=== PATIENT | male | born 1965 | race Caucasian/White ===

== ENCOUNTER → 2018-01-20 | Day surgery (SDC) | payer OTHER ==
[~2018-01-20] MED LIST: Betamethasone Acetate/Betamethasone Sod Phosphate 30 MG/5 ML MDV ONE; Iopamidol 408 MG/ML 50 ML SDV ONE; Lidocaine 1% 0 ML ONE; Lidocaine 2% 5 ML SDV ONE; Ropivacaine 0.5% 5 MG/ML 30 ML SDV ONE
--- NOTE | 2018-01-21 14:08 | OR ---
SURGEON: Merle Waddell D.O. DATE OF PROCEDURE: 01/20/2018 OR STAFF PRESENT: 1. Rebekah Pack RN. 2. Micky Mccracken RN. 3. RT Stella. WOUND CLASS: I. PREOPERATIVE DIAGNOSES: 1. Lumbar degenerative disk disease.(L4-5,L5-S1) 2. Lumbar spondylosis. 3. Chronic low back pain. POSTOPERATIVE DIAGNOSES: 1. Lumbar degenerative disk disease. 2. Lumbar spondylosis. 3. Chronic low back pain. PROCEDURES PERFORMED: Lumbar epidural steroid injection, interlaminar at L4-5; fluoroscopic guidance for needle placement local with oral valium for sedation. PREOPERATIVE PAIN: 6/10. POSTOPERATIVE PAIN: /10. FOLLOWUP: In the pain clinic in 3 weeks. SCREENING QUESTIONS: The patient answered "no" to all of the following questions: 1. Are you allergic to latex? 2. Do you have a bleeding disorder? 3. Do you have any current local or systemic infections? 4. Are you taking any anti-inflammatories or blood thinners? 5. Do you have any joint replacements, heart valve replacements, or a pacemaker? DESCRIPTION OF PROCEDURE: The patient had the procedure thoroughly explained including all possible risks, benefits and alternatives. Consent was signed in my clinic indicating understanding and willingness to proceed. The patient presented to [facility] and was escorted to the dressing room to disrobe and change into a hospital gown. Preoperative vital signs were taken and stable. The patient reported that Valium was taken prior to the procedure. The patient was brought back to the procedure room and placed in the prone position on the procedure room table. A pillow was placed under the hips in order to flatten the lumbar lordosis. The back was prepped with ChloraPrep and sterilely draped. All personnel in the operating room were dressed in appropriate attire including surgical scrubs, head and shoe covers. This was to ensure sterility while in the treatment room. During the time fluoroscopy was in use, all personnel in the operating room wore lead lozano with thyroid collars. Sterile technique was used throughout the procedure. The patient was awake and conversant throughout the procedure. There was no evidence of infection at the site of needle insertion. Skeletal landmarks were identified under fluoroscopy for the L4-5 epidural. Skin was anesthetized with 2% lidocaine with a sterile 27-gauge 1.5 inch needle. Then a 20-gauge Tuohy epidural needle was placed in the epidural space with loss of resistance technique under fluoroscopic guidance. No heme, cerebrospinal fluid, or paresthesias were noted. Isovue-200 contrast dye was injected in 0.2 cubic centimeter increments and seen to outline the epidural space in both AP and lateral views. There was no intravascular flow pattern observed under live fluoroscopy. Then 12 milligrams of Celestone and local was slowly injected after negative aspiration. The patient tolerated the procedure well. Vital signs were stable during and after the procedure. The staff escorted the patient to the recovery area and the patient was released in stable condition after a brief stay in the recovery room monitored by the nurse. The patient was given both oral and written discharge and follow up instructions with recommendation to follow up given for 2-3 weeks. The patient voiced understanding including understanding of those signs and symptoms that would require emergency care. The patient knows how to contact the office if there are any additional problems or questions in the meantime. SHAHZAD / JEFFREY /[id number] MTDSandie
== END ==
LOC: MW.SDS 11:42
PROVIDERS: ATTEND Anesthesiology
DX: G89.29 Other chronic pain (principal); M54.5 Low back pain; M47.26 Other spondylosis with radiculopathy, lumbar region; M46.96 Unspecified inflammatory spondylopathy, lumbar region; M51.36 Other intervertebral disc degeneration, lumbar region; M17.0 Bilateral primary osteoarthritis of knee; M99.83 Other biomechanical lesions of lumbar region; E78.00 Pure hypercholesterolemia, unspecified; Z88.8 Allergy status to other drugs, medicaments and biological substances; Z88.5 Allergy status to narcotic agent; M79.1 Myalgia
CPT/HCPCS: 62323; J0702; J2795; Q9966

== ENCOUNTER 2018-07-13 08:08 | Day surgery (SDC) | payer OTHER ==
[~2018-07-13 08:08] MED LIST changes: +Acetaminophen/oxyCODONE 325-10 MG Tab PO PRN; -Betamethasone Acetate/Betamethasone Sod Phosphate 30 MG/5 ML MDV ONE; +Bupivacaine 0.5% 30 ML SDV ONE; -Iopamidol 408 MG/ML 50 ML SDV ONE; +Ketorolac 10 MG Tab PO PRN; +Lactated Ringers 1,000 ML IV SCH; -Lidocaine 1% 0 ML ONE; +Lidocaine 1% 50 ML MDV ONE; -Lidocaine 2% 5 ML SDV ONE; +Midazolam 1 MG/ML 2 ML SDV ONE; -Ropivacaine 0.5% 5 MG/ML 30 ML SDV ONE; +ceFAZolin 1 GM in Premix Bag 1 BAG IV SCH; +fentaNYL 100 MCG/2 ML SDV ONE
--- NOTE | 2018-07-13 08:58 | PCM.PREANE ---
Preanesthetic Assessment - Anesthesia/Transfusion/Family Hx Anesthesia History: Prior Anesthesia Without Reaction Family History of Anesthesia Reaction: No Transfusion History: No Prior Transfusion(s) Intubation History: Unknown - Review of Systems General: No Symptoms Pulmonary: No Symptoms Cardiovascular: No Symptoms Gastrointestinal: No Symptoms Neurological: No Symptoms Other: Reports: None - Physical Assessment NPO Status Date: 07/12/18 NPO Status Time: 19:00 O2 Sat by Pulse Oximetry: 97 Respiratory Rate: 20 Vital Signs: Last Vital Signs Temp 36.2 C 07/13/18 08:25 Pulse 90 07/13/18 08:25 Resp 20 07/13/18 08:25 BP 119/73 07/13/18 08:25 Pulse Ox 97 07/13/18 08:25 Height: 1.73 m Weight: 76.657 kg ASA Class: 2 Mental Status: Alert & Oriented x3 Airway Class: Mallampati = 2 Dentition: Reports: Normal Dentition Thyro-Mental Finger Breadths: 3 Mouth Opening Finger Breadths: 2 ROM/Head Extension: Limited/Partial Lungs: Clear to Auscultation, Normal Respiratory Effort Cardiovascular: Regular Rate, Regular Rhythm - Allergies Allergies/Adverse Reactions: Allergies Allergy/AdvReac Type Severity Reaction Status Date / Time atorvastatin Allergy Muscle Verified 07/07/18 12:22 Aches hydrocodone Allergy Nausea and Verified 07/07/18 12:22 Vomiting - Blood Blood Available: No - Anesthesia Plan Pre-Op Medication Ordered: None - Acknowledgements Anesthesia Type Planned: General Anesthesia, Regional Block (interscalene brachial plexus block for postoparetive pain control) PreAnesthesia Questionnaire HEENT History: Reports: Other (See Below) Other HEENT History: wears glasses, has upper front permanent bridge Cardiovascular History: Reports: High Cholesterol Gastrointestinal History: Reports: None Musculoskeletal History: Reports: Back Pain, Chronic, Fracture, Osteoarthritis Other Musculoskeletal History: hx of fx right ankle, chronic pain sydrome, h/o chronic use of opioids Neurological History: Reports: Other (See Below) Other Neuro History: hx of motion sickness on a boat - Past Surgical History Head Surgeries/Procedures: Reports: None GI Surgical History: Reports: Hernia, Inguinal Neurological Surgical History: Reports: C-Spine, Spinal Fusion Other Neurological Surgeries/Procedures: has bulging discs at L4-5-6, hx of fusion C4-5-6 Musculoskeletal Surgical History: Reports: Arthroscopic Knee, Hip Replacement, Knee Replacement, Shoulder Surgery Other Musculoskeletal Surgeries/Procedures:: bilateral MIGUEL, left TKA, hx of 8 knee arthroscopies including 3 ACL repairs, hx of left shoulder reconstruction - SUBSTANCE USE Smoking Status *Q: Never Smoker Recreational Drug Use History: No - HOME MEDS Home Medications: Home Meds Diclofenac Sodium [Voltaren 1% Gel] 4 gm TOP QID PRN 07/07/18 [History] Gebauers [place] And Stretch 1 spray TOP TID PRN 07/07/18 [History] oxyCODONE HCl/Acetaminophen [Endocet 7.5-325 mg Tablet] 1 tab PO Q6H PRN [History] - CURRENT (IN HOUSE) MEDS Current Meds: Current Medications Cefazolin Sodium/Dextrose 1 gm (/ Premix) 50 mls @ 100 mls/hr IV ONCALL [facility] Lactated Ringer's (Ringers, Lactated) 1,000 mls @ 100 mls/hr IV ASDIRECTED [facility] Last Admin: 07/13/18 08:30 Dose: 100 mls/hr Ketorolac Tromethamine (Toradol) 10 mg PO Q6H PRN PRN Reason: Pain Stop: 07/18/18 08:01 Oxycodone/Acetaminophen (Percocet 325-10 Mg) 1 - 2 tab PO Q4H PRN PRN Reason: Pain Discontinued Medications Bupivacaine HCl (Marcaine 0.5%) Confirm Administered Dose 30 ml .ROUTE .STK-MED ONE Stop: 07/13/18 07:33 Fentanyl (Sublimaze) Confirm Administered Dose 100 mcg .ROUTE .STK-MED ONE Stop: 07/13/18 07:47 Lidocaine HCl (Xylocaine 1%) Confirm Administered Dose 50 ml .ROUTE .STK-MED ONE Stop: 07/13/18 07:33 Midazolam HCl (Versed 1 Mg/Ml) Confirm Administered Dose 4 mg .ROUTE .STK-MED ONE Stop: 07/13/18 07:47
[2018-07-13] MEDS ORDERED: Lidocaine 2% 5 ML SDV ONE (09:15)
[2018-07-13] MEDS ORDERED: Propofol 200 MG/20 ML SDV ONE (10:11)
[2018-07-13] MEDS ORDERED: Midazolam 1 MG/ML 2 ML SDV ONE (10:11)
[2018-07-13] MEDS ORDERED: fentaNYL 250 MCG/5 ML SDV ONE (10:12)
--- NOTE | 2018-07-13 10:16 | PCM.SN ---
- Free Text/Narrative Note: Anesthesia Note: Right Interscalene Block performed [id number] for postop pain control. Pt consents to procedure after risks/benefits discussed. Pt has had one in the past and states it worked great. EKG, Sat monitor, and 2L of O2 applied per NC. 2mg Versed and 50mcg Fentanyl IV given for sedation. R shoulder marked per Dr. Goodman and timeout performed with Dr. Wilson. Site identified and prepped with chlorhexidine prep. Skin wheal with 0.5 mL of 2% lido. Pt positioned sitting with HOB at 25 degrees. 24 Ga Stimuplex needle initially obtains full R arm and shoulder twitch at 1.0 mA and able to refine down to 0.45 mA. Negative aspiration and injection of a total of 30mL 0.5% Bupivicaine, 10mL 2% Lidocaine , and 4mg Decadron with negative aspiration every 5mL. Pt tolerates well and VSS. Pt states some parasthesia immediately after finishing and by 25 min after can no longer move arm. Pt resting comfortably and happy with results.
[2018-07-13] MEDS ORDERED: Rocuronium 10 MG/ML 10 ML Syringe ONE (10:17)
[2018-07-13] MEDS ORDERED: Promethazine 25 MG/ML SDV IM ONE (11:41)
[2018-07-13] MEDS ORDERED: fentaNYL 100 MCG/2 ML SDV IVPUSH PRN (11:41)
[2018-07-13] MEDS ORDERED: Glycopyrrolate 0.2 MG/ML SDV ONE (11:54)
--- NOTE | 2018-07-13 13:10 | PCM.OPNOTE ---
- General Post-Op/Procedure Note Date of Surgery/Procedure: 07/13/18 Operative Procedure(s): R shoulder scope with SAD, extensive debridement, and RTCR Post-Op Diagnosis: R shoulder. 1. impingement. 2. deg ant/post labral tear. 3. biceps tendonopathy. 4. RTC tear Anesthesia Technique: General ET Tube, Regional Block Primary Surgeon: Sandra Goodman Rock Mason Apprentice: Evelia Paredes EBL in mLs: 10 Condition: Good Free Text/Narrative:: # [id number]
--- NOTE | 2018-07-13 13:52 | PCM.POSTAN ---
POST ANESTHESIA ASSESSMENT - MENTAL STATUS Mental Status: Alert, Oriented - RESPIRATORY Respiratory Status: Respiratory Rate WNL, Airway Patent, O2 Saturation Stable - CARDIOVASCULAR CV Status: Pulse Rate WNL, Blood Pressure Stable - GASTROINTESTINAL GI Status: No Symptoms - PAIN Pain Score: 0 - POST OP HYDRATION Hydration Status: Hypovolemic - OBSERVATIONS Free Text/Narrative:: no anesthesia problems
--- NOTE | 2018-07-13 14:28 | OR ---
SURGEON: Sandra Goodman MD DATE OF PROCEDURE: 07/13/2018 PREOPERATIVE DIAGNOSES: 1. Right shoulder impingement syndrome. 2. Right shoulder rotator cuff tear. POSTOPERATIVE DIAGNOSES: 1. Right shoulder impingement syndrome. 2. Right shoulder degenerative anterior and posterior labral tear. 3. Right shoulder biceps tendinopathy. 4. Right shoulder rotator cuff tear. PROCEDURES: Right shoulder arthroscopy with: 1. Subacromial decompression with release of coracoacromial ligament and acromioplasty. 2. Extensive debridement including debridement of degenerative anterior and posterior labral tear and biceps tenotomy. 3. Arthroscopic rotator cuff repair. 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 ESTIMATED BLOOD LOSS: 10 mL. TOURNIQUET TIME: 0 minutes. COMPLICATIONS: None. DVT PROPHYLAXIS: PAS boots to bilateral lower extremities. IMPLANTS USED: Biomet 2.9 mm JuggerKnot anchor x2 and Winkapp Quattro Link anchor. BRIEF HISTORY: Salvador is a 53-year-old male who has had complaint of progressive right shoulder pain. An MRI did show a small tear of the supraspinatus. Due to his lack of response to conservative treatment, I did recommend surgical intervention. Risks and goals of the procedure were discussed with the patient and were documented preoperatively. He agreed to proceed. DESCRIPTION OF PROCEDURE: The patient was properly identified and brought to the operating room. He was transferred from the OR cart and placed on the operating table in supine position. General anesthesia was administered. An interscalene block had been administered preoperatively. After adequate anesthesia was obtained, the patient was placed into a beach-chair position. Care was taken to pad all bony prominences. His head was secured. The right upper extremity was then prepped in standard fashion using ChloraPrep solution. It was then sterilely draped. A time-out was performed to ensure correct site and procedure. Preoperative antibiotics were given. The surgical site had been marked preoperatively. A marking pen was used to identify bony landmarks. Approximately 30 mL of normal saline was introduced into the glenohumeral joint. A posterior portal arthrotomy was established. Blunt trocar and cannula were introduced into the glenohumeral joint. Camera, inflow, and outflow were assembled. He had mild synovitis within the rotator interval. An anterior portal was established. The supraspinatus was probed. He had some minor degenerative fraying along the superior border; however, its attachment was intact, no loose bodies were noted within the subscapular recess. The anterior labrum was then inspected. He had extensive degenerative fraying of the anterior, superior, and posterior labrum. Using a combination of electrocautery and shaver, this was debrided back to a stable remnant. The biceps was then inspected. Its attachment to the superior labrum showed quite a bit of peel back. The biceps was pulled into the joint to examine the distal aspect of the biceps tendon. Extensive synovitis and minor longitudinal tearing were noted. I elected to proceed with biceps tenotomy. Using electrocautery, the biceps tendon was amputated from its attachment site to the superior glenoid. The biceps tendon retracted easily into the biceps tendon sheath. Its attachment site was smoothed. Electrocautery was then used to debride the remainder of the superior and posterior labrum. Joint surfaces were then inspected. 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 The humeral head showed some bumpiness to the articular surface. These areas were probed and were found to be stable. It may have been just softening consistent with grade 1 chondromalacia. I then entered the axillary pouch. No loose bodies were identified. The arm was then brought into an abducted and externally rotated position. The bare area was noted posteriorly. As I progressed forward, there was significant fraying along the anterior aspect of the supraspinatus. No full-thickness tear was appreciated; however, there was extensive fraying greater than 7 mm. The arm was then brought back into a neutral position. Instruments were removed from the glenohumeral joint. Blunt trocar and cannula were then introduced into the subacromial space. Camera, inflow, and outflow were assembled. He had extensive bursitis. Using a combination of electrocautery and the shaver, an extensive bursectomy was performed. This allowed for good visualization of the rotator cuff. The anterior aspect of the supraspinatus showed quite a bit of thinning consistent with intra-articular findings. Although, the tear was not completely full-thickness, the remaining attachment was quite thin and I elected to proceed with repair. The anterior portion of the supraspinatus was removed from its attachment to the footprint. The bone just lateral to the articular surface was then debrided of soft tissue. I then turned my attention to the acromion. This appeared to be downsloping and causing some impingement. The coracoacromial ligament was released anteriorly. I then performed an acromioplasty using a 5.0 mm eva. This provided good decompression of the subacromial space. I then used the eva to roughen the repair site. The bone just lateral to the articular margin at the site of the tear was debrided to a bleeding surface. I then made an additional portal to help with suture management and anchor placement. Passport cannulas were placed into two lateral portals. Two 2.9 mm JuggerKnot anchors were then placed into the subchondral bone, just lateral to the articular margin. The bone quality appeared good and no pullout was noted with tension on the anchor. A suture passer was then used to pass the sutures through the rotator cuff in an anterior to posterior fashion. The cuff tissue was quite robust. I then tied the sutures in a posterior to anterior manner. I felt that we would have better compression of the cuff if a lateral row was placed. I did use Quattro Link anchor to pass the limbs of the suture through. The Quattro Link anchor was then placed in a lateral row position, this was placed without difficulty. A probe was then used to examine the repair site. There appeared to be good compression of the cuff to the bony surface. No peel back was noted and the repair appeared to be nearly watertight. Suture ends were then trimmed. Instruments were then removed from the shoulder. The portal sites were closed with 3-0 nylon. Xeroform gauze was placed over the wound and a bulky dressing was applied. He was placed into a shoulder immobilizer. He was awakened from his anesthetic and transferred back to the operating room cart. He was brought to recovery room in stable condition. All needle and sponge counts were correct. WALKER / JEFFREY /[id number]
== END 2018-07-13 15:02 | disposition home or self-care (01) ==
LOC: MW.SDS 08:08
PROVIDERS: ATTEND Orthopaedic Surgery
DX: M75.101 Unspecified rotator cuff tear or rupture of right shoulder, not specified as traumatic (principal); M75.41 Impingement syndrome of right shoulder; M94.211 Chondromalacia, right shoulder; M65.811 Other synovitis and tenosynovitis, right shoulder; S43.401A Unspecified sprain of right shoulder joint, initial encounter; E78.00 Pure hypercholesterolemia, unspecified; M79.18 Myalgia, other site; Z88.8 Allergy status to other drugs, medicaments and biological substances; Z88.5 Allergy status to narcotic agent; X58.XXXA Exposure to other specified factors, initial encounter
CPT/HCPCS: 29823; 29826; 29827; 64415; C1713; J2001; J2250; J2704; J3010; J3490; J7120; 88304

== ENCOUNTER 2018-11-23 06:26 | Day surgery (SDC) | payer OTHER ==
[~2018-11-23 06:26] MED LIST changes: -Acetaminophen/oxyCODONE 325-10 MG Tab PO PRN; -Bupivacaine 0.5% 30 ML SDV ONE; -Ketorolac 10 MG Tab PO PRN; -Lidocaine 1% 50 ML MDV ONE; -Midazolam 1 MG/ML 2 ML SDV ONE; -ceFAZolin 1 GM in Premix Bag 1 BAG IV SCH; -fentaNYL 100 MCG/2 ML SDV ONE
[2018-11-23] MEDS ORDERED: Lidocaine 2% 5 ML SDV ONE (06:51)
[2018-11-23] MEDS ORDERED: Propofol 200 MG/20 ML SDV ONE ×2 (06:51)
[2018-11-23] MEDS ORDERED: Ketamine 500 mg/10 ML MDV ONE (06:59)
--- NOTE | 2018-11-23 07:20 | PCM.PREANE ---
Preanesthetic Assessment - Anesthesia/Transfusion/Family Hx Anesthesia History: Prior Anesthesia Without Reaction Family History of Anesthesia Reaction: No Transfusion History: No Prior Transfusion(s) Intubation History: Unknown - Review of Systems General: No Symptoms Pulmonary: No Symptoms Cardiovascular: No Symptoms Gastrointestinal: No Symptoms, Other (screening colonoscopy) Neurological: No Symptoms Other: Reports: None - Physical Assessment NPO Status Date: 11/22/18 NPO Status Time: 22:00 O2 Sat by Pulse Oximetry: 98 Respiratory Rate: 16 Vital Signs: Last Vital Signs Temp 36.0 C 11/23/18 06:45 Pulse 104 H 11/23/18 06:45 Resp 16 11/23/18 06:45 BP 119/82 11/23/18 06:45 Pulse Ox 98 11/23/18 06:45 Height: 5 ft 8 in Weight: 79.379 kg ASA Class: 2 Mental Status: Alert & Oriented x3 Airway Class: Mallampati = 2 Dentition: Reports: Normal Dentition Thyro-Mental Finger Breadths: 3 Mouth Opening Finger Breadths: 3 (narrow mouth) ROM/Head Extension: Full Lungs: Clear to Auscultation, Normal Respiratory Effort Cardiovascular: Regular Rate, Regular Rhythm - Allergies Allergies/Adverse Reactions: Allergies Allergy/AdvReac Type Severity Reaction Status Date / Time atorvastatin Allergy Muscle Verified 11/21/18 08:27 Aches hydrocodone Allergy Nausea and Verified 11/21/18 08:27 Vomiting - Blood Blood Available: No - Anesthesia Plan Pre-Op Medication Ordered: None - Acknowledgements Anesthesia Type Planned: MAC Pt an Appropriate Candidate for the Planned Anesthesia: Yes Alternatives and Risks of Anesthesia Discussed w Pt/Guardian: Yes Pt/Guardian Understands and Agrees with Anesthesia Plan: Yes PreAnesthesia Questionnaire HEENT History: Reports: Other (See Below) Other HEENT History: reading glasses, Cardiovascular History: Reports: High Cholesterol Respiratory History: Reports: None Gastrointestinal History: Reports: None Genitourinary History: Reports: BPH Musculoskeletal History: Reports: Back Pain, Chronic, Fracture, Neck Pain, Chronic, Osteoarthritis, Other (See Below) (chronic pain syndrome, myofascial pain syndrome, foster. knee and feet pain) Other Musculoskeletal History: DDD Neurological History: Reports: Other (See Below) Other Neuro History: cervico-occipital pain (tension headache), hx of motion sickness on a boat Psychiatric History: Reports: None Endocrine/Metabolic History: Reports: None Hematologic History: Reports: None Immunologic History: Reports: None Oncologic (Cancer) History: Reports: None Dermatologic History: Reports: None - Past Surgical History Head Surgeries/Procedures: Reports: None HEENT Surgical History: Reports: None Cardiovascular Surgical History: Reports: None Respiratory Surgical History: Reports: None GI Surgical History: Reports: Hernia, Inguinal Male Surgical History: Reports: None Endocrine Surgical History: Reports: None Neurological Surgical History: Reports: C-Spine, Spinal Fusion Other Neurological Surgeries/Procedures: has bulging discs at L4-5-6, hx of fusion C4-5-6 Musculoskeletal Surgical History: Reports: Arthroscopic Knee, Hip Replacement, Knee Replacement, Shoulder Surgery Other Musculoskeletal Surgeries/Procedures:: bilateral MIGUEL, left TKA, hx of 8 knee arthroscopies including 3 ACL repairs, hx of left shoulder reconstruction, rt rotator cuff repair Oncologic Surgical History: Reports: None Dermatological Surgical History: Reports: None - SUBSTANCE USE Smoking Status *Q: Never Smoker Recreational Drug Use History: No - HOME MEDS Home Medications: Home Meds Diclofenac Sodium [Voltaren 1% Gel] 1 applic TOP QID PRN 07/07/18 [History] Gebauers [place] And Stretch 1 spray TOP TID PRN 07/07/18 [History] Fish Oil/[place]-3 Fatty Acids [Fish Oil 1,000 MG] 2 tab PO BID 11/21/18 [History] Multivitamin [Multivitamins] 1 tab PO DAILY 11/21/18 [History] Potassium 1 tab PO BEDTIME 11/21/18 [History] Vitamin B Complex 1 tab PO DAILY 11/21/18 [History] - CURRENT (IN HOUSE) MEDS Current Meds: Current Medications Lactated Ringer's (Ringers, Lactated) 1,000 mls @ 125 mls/hr IV ASDIRECTED [facility] Last Admin: 11/23/18 07:00 Dose: 125 mls/hr Discontinued Medications Ketamine HCl (Ketalar) Confirm Administered Dose 500 mg .ROUTE .STK-MED ONE Stop: 11/23/18 07:00 Lidocaine (Xylocaine-Mpf 2%) Confirm Administered Dose 5 ml .ROUTE .STK-MED ONE Stop: 11/23/18 06:52 Propofol (Diprivan 20 Ml) Confirm Administered Dose 200 mg .ROUTE .STK-MED ONE Stop: 11/23/18 06:52 Propofol (Diprivan 20 Ml) Confirm Administered Dose 200 mg .ROUTE .[facility] ONE Stop: 11/23/18 06:52
[2018-11-23] MEDS ORDERED: Sodium Chloride 0.9% 0 ML ONE (07:35)
[2018-11-23] MEDS ORDERED: ceFAZolin 1 GM Vial ONE (07:36)
[2018-11-23] MEDS ORDERED: Levofloxacin/Dextrose 5%-Water 750 MG in Premix Bag 1 BAG IV ONE (08:08)
--- NOTE | 2018-11-23 08:32 | PCM.OPNOTE ---
- General Post-Op/Procedure Note Date of Surgery/Procedure: 11/23/18 Operative Procedure(s): colonoscopy Findings: see [id number] Pre Op Diagnosis: scrn colonoscopy Post-Op Diagnosis: Same Anesthesia Technique: Moderate Sedation Primary Surgeon: Toy Burgess Complications: None Condition: Good
--- NOTE | 2018-11-23 08:33 | PCM.POSTAN ---
POST ANESTHESIA ASSESSMENT - MENTAL STATUS Mental Status: Alert, Oriented - RESPIRATORY Respiratory Status: Respiratory Rate WNL, Airway Patent, O2 Saturation Stable - CARDIOVASCULAR CV Status: Pulse Rate WNL, Blood Pressure Stable - GASTROINTESTINAL GI Status: No Symptoms - PAIN Pain Score: 0 - POST OP HYDRATION Hydration Status: Adequate & Stable - OBSERVATIONS Free Text/Narrative:: No anesthesia problems, patient skipped recovery room stage of postoperative care.
--- NOTE | 2018-11-23 11:16 | OR ---
SURGEON: Toy Burgess MD DATE OF PROCEDURE: 11/23/2018 PREOPERATIVE DIAGNOSIS: Screening colonoscopy. POSTOPERATIVE DIAGNOSIS: Diverticulosis. PROCEDURE PERFORMED: Colonoscopy. DESCRIPTION OF PROCEDURE: The patient was taken to the endoscopy room. A time out was called, patient identified, and procedure identified. Diprivan was then administrated. Patient went from awake to sleep, hearing doctor talking or door closing is normal. Perineum inspection and digital examination were then performed. A well- lubricated colonoscope was gently inserted through the rectum, advanced past the rectosigmoid junction, the descending colon, splenic flexure, transverse colon, hepatic flexure, ascending colon, arrived to the cecum. Cecum was identified as dictated in the finding. Then the scope was carefully withdrawn while attention was paid to the mucosal surface for any abnormality. Air will be sucked out during the scope withdrawal. At the rectum, retroflexed to examine any rectal diseases, fistula or hemorrhoids. Patient tolerated procedure well. There were no intraoperative complications, and Dr. Burgess was present throughout the whole procedure. FINDINGS: 1. The patient is easily sedated with PLAYGROUND AIDE and Diprivan, the patient is soundly snoring. 2. The patient's bowel prep is average to above average, very little liquid stool, no semi-formed stool or stool balls. 3. Colon rather straightforward. Cecum indicated by ileocecal fold, one-to- one indentation, light emittance, appendiceal orifice. Mucosa was examined upon scope pulling out with constant irrigation, and the patient has a little bit something like an undigested food or peel which is easily displaced with irrigation. Other than that, the patient has moderate amount of diverticulosis concentrated in the sigmoid area and no signs or symptoms of diverticulitis. No polyp, inflammation, stricture, ulceration, AV malformation, bleeding observed. The patient has moderate internal hemorrhoid and no external hemorrhoid. The patient would benefit from repeat colonoscopy in 10 years from today or if clinically indicated otherwise. 750mg IV Levaquin preop was given because of total hip and total knee arthroplasty in the past. RODO / JEFFREY /[id number]
== END 2018-11-23 09:22 | disposition home or self-care (01) ==
LOC: MW.SDS 06:26
PROVIDERS: ATTEND Surgery
DX: Z12.11 Encounter for screening for malignant neoplasm of colon (principal); K57.30 Diverticulosis of large intestine without perforation or abscess without bleeding; K64.8 Other hemorrhoids; E78.00 Pure hypercholesterolemia, unspecified; M17.0 Bilateral primary osteoarthritis of knee; Z88.5 Allergy status to narcotic agent; Z88.8 Allergy status to other drugs, medicaments and biological substances; Z79.899 Other long term (current) drug therapy
CPT/HCPCS: 45378; J1956; J2001; J2704; J7120; 00812; J0690

== ENCOUNTER 2019-02-01 13:34 | Emergency (ER) | payer OTHER ==
--- NOTE | 2019-02-01 13:50 | EDM.PDOC ---
ED HPI GENERAL MEDICAL PROBLEM - General Chief Complaint: Upper Extremity Injury/Pain Stated Complaint: ARM INJURY--SENT FROM [place] Time Seen by Provider: 02/01/19 13:38 Source of Information: Reports: Patient History Limitations: Reports: No Limitations - History of Present Illness INITIAL COMMENTS - FREE TEXT/NARRATIVE: History of present illness: []Patient has a history of right-sided rotator cuff injury and has been followed by Dr. Goodman in the past. He was sent here from the [place] today for a prescription for pain meds. There is no new trauma or injury this is a chronic stable injury for this patient denies any other pain. He is requesting pain meds so he can sleep at night Review of systems: As per history of present illness and below otherwise all systems reviewed and negative. Past medical history: As per history of present illness and as reviewed below otherwise noncontributory. Surgical history: As per history of present illness and as reviewed below otherwise noncontributory. Social history: No reported history of drug or alcohol abuse. Family history: As per history of present illness and as reviewed below otherwise noncontributory. Physical exam: General: Well developed, well nourished in NAD HEENT: Atraumatic, normocephalic, pupils reactive, negative for conjunctival pallor or scleral icterus, mucous membranes moist, throat clear, neck supple, nontender, trachea midline. Lungs: Clear to auscultation, breath sounds equal bilaterally, chest nontender. Heart: S1S2, regular, negative for clicks, rubs, or JVD. Abdomen: NABS, Soft, nondistended, nontender. Negative for masses or hepatosplenomegaly. Negative for costovertebral tenderness. Pelvis: Stable nontender. Genitourinary: Deferred. Rectal: Deferred. Extremities: Atraumatic, negative for cords or calf pain. Neurovascular unremarkable. Neuro: Awake, alert, oriented. Cranial nerves II through XII unremarkable. Cerebellum unremarkable. Motor and sensory unremarkable throughout. Exam nonfocal. Skin:warm and dry Diagnostics: None Therapeutics: None ED Course: Stable Impression: Prescription for pain meds and medical screening exam Prescriptions: Tramadol 16 tablets no refills Plan: Take meds as directed, follow up with your primary care physician, return to ER if symptoms worsen or change. Definitive disposition and diagnosis as appropriate pending reevaluation and review of above. right bicep Pain Score (Numeric/FACES): 9 - Related Data Allergies Allergy/AdvReac Type Severity Reaction Status Date / Time atorvastatin Allergy Muscle Verified 02/01/19 13:47 Aches hydrocodone Allergy Nausea and Verified 02/01/19 13:47 Vomiting Home Meds: Home Meds Diclofenac Sodium [Voltaren 1% Gel] 1 applic TOP QID PRN 07/07/18 [History] Gebauers [place] And Stretch 1 spray TOP TID PRN 07/07/18 [History] Fish Oil/[place]-3 Fatty Acids [Fish Oil 1,000 MG] 2 tab PO BID 11/21/18 [History] Multivitamin [Multivitamins] 1 tab PO DAILY 11/21/18 [History] Potassium 1 tab PO BEDTIME 11/21/18 [History] Vitamin B Complex 1 tab PO DAILY 11/21/18 [History] traMADol HCl [Tramadol HCl] 50 mg PO Q6H PRN #16 tablet 02/01/19 [Rx] Past Medical History HEENT History: Reports: Other (See Below) Other HEENT History: reading glasses, Cardiovascular History: Reports: High Cholesterol Respiratory History: Reports: None Gastrointestinal History: Reports: None Genitourinary History: Reports: BPH Musculoskeletal History: Reports: Back Pain, Chronic, Fracture, Neck Pain, Chronic, Osteoarthritis, Other (See Below) (chronic pain syndrome, myofascial pain syndrome, foster. knee and feet pain) Other Musculoskeletal History: DDD Neurological History: Reports: Other (See Below) Other Neuro History: cervico-occipital pain (tension headache), hx of motion sickness on a boat Psychiatric History: Reports: None Endocrine/Metabolic History: Reports: None Hematologic History: Reports: None Immunologic History: Reports: None Oncologic (Cancer) History: Reports: None Dermatologic History: Reports: None - Past Surgical History Head Surgeries/Procedures: Reports: None HEENT Surgical History: Reports: None Cardiovascular Surgical History: Reports: None Respiratory Surgical History: Reports: None GI Surgical History: Reports: Hernia, Inguinal Male Surgical History: Reports: None Endocrine Surgical History: Reports: None Neurological Surgical History: Reports: C-Spine, Spinal Fusion Other Neurological Surgeries/Procedures: has bulging discs at L4-5-6, hx of fusion C4-5-6 Musculoskeletal Surgical History: Reports: Arthroscopic Knee, Hip Replacement, Knee Replacement, Shoulder Surgery Other Musculoskeletal Surgeries/Procedures:: bilateral MIGUEL, left TKA, hx of 8 knee arthroscopies including 3 ACL repairs, hx of left shoulder reconstruction, rt rotator cuff repair Oncologic Surgical History: Reports: None Dermatological Surgical History: Reports: None Review of Systems - Review of Systems Review Of Systems: See Below ED EXAM, GENERAL - Physical Exam Exam: See Below Course - Vital Signs Last Recorded V/S: Last Vital Signs Temp 97.4 F 02/01/19 13:44 Pulse 102 H 02/01/19 13:44 Resp 18 02/01/19 13:44 BP 119/80 02/01/19 13:44 Pulse Ox 96 02/01/19 13:44 Departure - Departure Time of Disposition: 13:56 Disposition: Home, Self-Care 01 Condition: Good Clinical Impression: Chronic shoulder pain Qualifiers: Laterality: right Qualified Code(s): M25.511 - Pain in right shoulder; G89.29 - Other chronic pain - Discharge Information *PRESCRIPTION DRUG MONITORING PROGRAM REVIEWED*: No *COPY OF PRESCRIPTION DRUG MONITORING REPORT IN PATIENT LEXX: No Prescriptions: traMADol HCl [Tramadol HCl] 50 mg PO Q6H PRN #16 tablet PRN Reason: Pain Referrals: Keenan Spence MD [Primary Care Provider] - Forms: ED Department Discharge Additional Instructions: The following information is given to patients seen in the emergency department who are being discharged to home. This information is to outline your options for follow-up care. We provide all patients seen in our emergency department with a follow-up referral. The need for follow-up, as well as the timing and circumstances, are variable depending upon the specifics of your emergency department visit. If you don't have a primary care physician on staff, we will provide you with a referral. We always advise you to contact your personal physician following an emergency department visit to inform them of the circumstance of the visit and for follow-up with them and/or the need for any referrals to a consulting specialist. The emergency department will also refer you to a specialist when appropriate. This referral assures that you have the opportunity for follow-up care with a specialist. All of these measure are taken in an effort to provide you with optimal care, which includes your follow-up. Under all circumstances we always encourage you to contact your private physician who remains a resource for coordinating your care. When calling for follow-up care, please make the office aware that this follow-up is from your recent emergency room visit. If for any reason you are refused follow-up, please contact the [facility] Emergency Department at and asked to speak to the emergency department charge nurse. Take meds as directed, follow up with your primary care physician, return to ER if symptoms worsen or change. Follow-up with primary care for further pain management [facility] [address] [place] [id number]
== END 2019-02-01 14:10 | disposition home or self-care (01) ==
LOC: MW.ED 13:34
DX: M25.511 Pain in right shoulder (principal); G89.29 Other chronic pain; Z76.0 Encounter for issue of repeat prescription; Z88.5 Allergy status to narcotic agent; Z88.8 Allergy status to other drugs, medicaments and biological substances
CPT/HCPCS: 99283

== ENCOUNTER 2019-10-20 17:48 | Emergency (ER) | payer OTHER ==
[2019-10-20] MEDS ORDERED: Ibuprofen 800 MG Tab PO ONE (18:55)
--- NOTE | 2019-10-20 18:59 | EDM.PDOC ---
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 Is controlled Review of systems: As per history of present illness and below otherwise all systems reviewed and negative. Past medical history: As per history of present illness and as reviewed below otherwise noncontributory. Surgical history: As per history of present illness and as reviewed below otherwise noncontributory. Social history: No reported history of drug or alcohol abuse. Family history: As per history of present illness and as reviewed below otherwise no ncontributory. Physical exam: HEENT: Atraumatic, normocephalic, pupils reactive, negative for conjunctival pallor or scleral icterus, mucous membranes moist, throat clear, neck supple, nontender, trachea midline. There is a 1 cm laceration to the apex of the scalp that is well approximated and not bleeding and clean will not require primary closure. Lungs: Clear to auscultation, breath sounds equal bilaterally, chest nontender. Heart: S1S2, regular, negative for clicks, rubs, or JVD. Abdomen: Soft, nondistended, nontender. Negative for masses or hepatosplenomegaly. Negative for costovertebral tenderness. Pelvis: Stable nontender. Genitourinary: Deferred. Rectal: Deferred. Extremities: Atraumatic, negative for cords or calf pain. Neurovascular unremarkable. Neuro: Awake, alert, oriented. Cranial nerves II through XII unremarkable. Cerebellum unremarkable. Motor and sensory unremarkable throughout. Exam nonfocal. Diagnostics: [] Therapeutics: [] Impression: Head injury [] Plan: [place] home head injury instructions [] Definitive disposition and diagnosis as appropriate pending reevaluation and review of above. Lacerated area (upper head) Pain Score (Numeric/FACES): 10 - Related Data Allergies Allergy/AdvReac Type Severity Reaction Status Date / Time atorvastatin Allergy Muscle Verified 10/20/19 18:46 Aches hydrocodone Allergy Nausea and Verified 10/20/19 18:46 Vomiting Home Meds: Home Meds Diclofenac Sodium [Voltaren 1% Gel] 1 applic TOP QID PRN 07/07/18 [History] Gebauers [place] And Stretch 1 spray TOP TID PRN 07/07/18 [History] Fish Oil/[place]-3 Fatty Acids [Fish Oil 1,000 MG] 2 tab PO BID 11/21/18 [History] Multivitamin [Multivitamins] 1 tab PO DAILY 11/21/18 [History] Potassium 1 tab PO BEDTIME 11/21/18 [History] Vitamin B Complex 1 tab PO DAILY 11/21/18 [History] traMADol HCl [Tramadol HCl] 50 mg PO Q6H PRN #16 tablet 02/01/19 [Rx] Past Medical History HEENT History: Reports: Other (See Below) Other HEENT History: reading glasses, Cardiovascular History: Reports: High Cholesterol Respiratory History: Reports: None Gastrointestinal History: Reports: None Genitourinary History: Reports: BPH Musculoskeletal History: Reports: Back Pain, Chronic, Fracture, Neck Pain, Chronic, Osteoarthritis, Other (See Below) (chronic pain syndrome, myofascial pain syndrome, foster. knee and feet pain) Other Musculoskeletal History: DDD Neurological History: Reports: Other (See Below) Other Neuro History: cervico-occipital pain (tension headache), hx of motion sickness on a boat Psychiatric History: Reports: None Endocrine/Metabolic History: Reports: None Hematologic History: Reports: None Immunologic History: Reports: None Oncologic (Cancer) History: Reports: None Dermatologic History: Reports: None - Past Surgical History Head Surgeries/Procedures: Reports: None HEENT Surgical History: Reports: None Cardiovascular Surgical History: Reports: None Respiratory Surgical History: Reports: None GI Surgical History: Reports: Hernia, Inguinal Male Surgical History: Reports: None Endocrine Surgical History: Reports: None Neurological Surgical History: Reports: C-Spine, Spinal Fusion Other Neurological Surgeries/Procedures: has bulging discs at L4-5-6, hx of fusion C4-5-6 Musculoskeletal Surgical History: Reports: Arthroscopic Knee, Hip Replacement, Knee Replacement, Shoulder Surgery Other Musculoskeletal Surgeries/Procedures:: bilateral MIGUEL, left TKA, hx of 8 knee arthroscopies including 3 ACL repairs, hx of left shoulder reconstruction, rt rotator cuff repair Oncologic Surgical History: Reports: None Dermatological Surgical History: Reports: None Social & Family History - Family History Family Medical History: Noncontributory ED ROS GENERAL - Review of Systems Review Of Systems: See Below ED EXAM, HEAD INJURY - Physical Exam Exam: See Below Course - Vital Signs Text/Narrative:: Patient has a normal neuro exam he was not knocked out he is not have any blood thinners on board he is less than 65 years old imaging recommended in the situation the wound is going to be cleaned he will be discharged home Last Recorded V/S: Last Vital Signs Temp 35.5 C L 10/20/19 18:38 Pulse 88 10/20/19 18:38 Resp 18 10/20/19 18:38 BP 127/87 10/20/19 18:38 Pulse Ox 98 10/20/19 18:38 - Orders/Labs/Meds Orders: Active Orders 24 hr Category Date Time Status Ibuprofen [Motrin] Med 10/20/19 18:55 Once 800 mg PO ONETIME ONE Departure - Departure Time of Disposition: 18:58 Disposition: Home, Self-Care 01 Condition: Good Clinical Impression: Concussion with less than 1 hour loss of consciousness - Discharge Information *PRESCRIPTION DRUG MONITORING PROGRAM REVIEWED*: Not Applicable *COPY OF PRESCRIPTION DRUG MONITORING REPORT IN PATIENT LEXX: Not Applicable Instructions: Head Injury, Adult Referrals: PCP,None [Primary Care Provider] - Additional Instructions: The following information is given to patients seen in the emergency department who are being discharged to home. This information is to outline your options for follow-up care. We provide all patients seen in our emergency department with a follow-up referral. The need for follow-up, as well as the timing and circumstances, are variable depending upon the specifics of your emergency department visit. If you don't have a primary care physician on staff, we will provide you with a referral. We always advise you to contact your personal physician following an emergency department visit to inform them of the circumstance of the visit and for follow-up with them and/or the need for any referrals to a consulting specialist. The emergency department will also refer you to a specialist when appropriate. This referral assures that you have the opportunity for follow-up care with a specialist. All of these measure are taken in an effort to provide you with optimal care, which includes your follow-up. Under all circumstances we always encourage you to contact your private physician who remains a resource for coordinating your care. When calling for follow-up care, please make the office aware that this follow-up is from your recent emergency room visit. If for any reason you are refused follow-up, please contact the [facility] Emergency Department at and asked to speak to the emergency department charge nurse. Sepsis Event Note (ED) - Evaluation Sepsis Screening Result: No Definite Risk - Focused Exam Vital Signs: Vital Signs Temp Pulse Resp BP Pulse Ox 10/20/19 18:38 35.5 C L 88 18 127/87 98 - My Orders Last 24 Hours: My Active Orders 10/20/19 18:55 Ibuprofen [Motrin] 800 mg PO ONETIME ONE - Assessment/Plan Last 24 Hours: My Active Orders 10/20/19 18:55 Ibuprofen [Motrin] 800 mg PO ONETIME ONE
== END 2019-10-20 19:17 | disposition home or self-care (01) ==
LOC: MW.ED 17:48
DX: S06.0X1A Concussion with loss of consciousness of 30 minutes or less, initial encounter (principal); Z88.5 Allergy status to narcotic agent; Z88.8 Allergy status to other drugs, medicaments and biological substances; Z79.899 Other long term (current) drug therapy; W22.8XXA Striking against or struck by other objects, initial encounter
CPT/HCPCS: 99284; A9270; 99282